=== PATIENT | female | born 1985 ===

== ENCOUNTER 2025-01-19 13:14 | Outpatient (AMB) | payer OTHER, SELFPAY ==
--- NOTE | 2025-01-19 13:28 | A.OFFPC_ITS ---
Vital Signs 3 01/19/25 13:32 Height 5 ft 3.78 in Weight 128 lb 4 oz BMI 22.2 BP 112/70 Blood Pressure Location Lt brachial Position Sitting Pulse 82 Pulse Oximetry (%) 98 Intake Visit Reasons: SALES SUPPORT COORDINATOR establish care Accounts Administrator Required: No Accompanied by: Self / Same As Patient Is last menstrual period known: Yes Last menstrual period: 01/06/25 Post menopausal: No Patient : No Allergies asprin Allergy (Severe, Uncoded 01/19/25 13:41) Swelling Medication List - Last Reconciled 01/19/25 by Ashley Mcfarland PA-C ferrous sulfate 325 mg PO DAILY Tobacco use date assessed: 01/19/25 Dental Screening Dental Screen Date: 01/19/25 Did you have a dental visit in the last 12 months?: Yes Did you have a dental problem in the last 6 months where you did not have access to dental care?: No Was dental information given to patient?: Patient has dentist HPI SALES SUPPORT COORDINATOR establish care 2 HPI0 Details 39-year-old female coming to the office with the 1st time. Presenting with abdominal pain and a cyst in the left axilla. Abdominal pain occurs daily in the afternoon after eating, with no pain in the morning. The pain is described as a feeling of fullness and occurs despite eating small amounts. Constipation is reported, with bowel movements occurring infrequently. The patient uses MiraLax on weekends to manage constipation. The patient has a family history of stomach cancer; her father was diagnosed at age 50. A cyst in the left axilla was first noticed last year and causes intermittent pain, described as a pinch. The cyst is tender upon palpation and causes discomfort during certain activities. The patient has a history of a benign breast mass, which was biopsied and found to be non-cancerous. [facility] Medical History Kidney stones Surgical History H/O tubal ligation Family History Father Stomach cancer Maternal Grandfather Colon cancer Maternal Grandmother Alzheimer dementia Paternal Grandfather History of heart cancer Social History Household Members: Children Household Members Other:: 2 Both parents involved: No Caregiver staying overnight: No Housing: House Are you a primary pharmacist critical care to a significant other at home: No Do you presently have visiting nurse or other home services: No Alcohol intake: never Patient Tobacco Use Status: Never used Tobacco e-Cigarette/Vaping Use: Never Used service: No Current occupational status: employed Cognitive needs: No Hearing needs: No Vision needs: No Female Reproductive History Menstrual Duration of menses: 6-7 days Date of last menstrual period: 01/06/25 control method: permanent sterilization Permanent Sterilization: BTL Total pregnancies: 1 Full term: 1 Number of Living Children: 1 Questionnaire PHQ-9 Over the last 2 weeks, how often have you been bothered by any of the following problems? 1. Little interest or pleasure in doing things: not at all 2. Feeling down, depressed, or hopeless: not at all 3. Trouble falling or staying asleep, or sleeping too much: not at all 4. Feeling tired or having little energy: not at all 5. Poor appetite or overeating: not at all 6. Feeling bad about yourself - or that you are a failure or have let yourself or your family down: not at all 7. Trouble concentrating on things, such as reading the newspaper or watching television: not at all 8. Moving or speaking so slowly that other people could have noticed. Or the opposite - being so fidgety or restless that you have been moving around a lot more than usual: not at all 9. Thoughts that you would be better off or of hurting yourself in some way: not at all Total score: 0 Depression Screening Interpretation: Negative Depression Screening Done: Yes 52554 - PHQ-9 Billing: Yes Source: Developed by Drs. Baron Melara, Cassie Huggins, Janes Arguelles and colleagues, with an educational samanta from [employer]. Thrive Questionnaire Date Thrive assessed: 01/19/25 I am a: Patient What is your living situation today?: I have a steady place to live Within the past 12 months, did the food you bought not last and you didn't have the money to get more?: I choose not to answer this question Within the past 12 months, did you worry whether your food would run out before you got money to buy more?: I choose not to answer this question Do you have trouble paying for medicines?: No Do you have trouble getting transportation to medical appointments?: No Do you have trouble paying your heating and electricity bill?: No Do you have trouble taking care of your child, family member or friend?: No Do you have trouble with day-to-day activities such as bathing, preparing meals, shopping, managing finances, etc.?: No Are you currently unemployed and looking for a job?: No Are you interested in more education?: I choose not to answer this question Please select the resources that you would like help with: None Currently or been in a relationship where the following occur: No concerns reported THRIVE Score: 0 AUDIT C Alcohol Use Questionnaire (AUDIT-C) 1. How often do you have a drink containing alcohol?: Never Total Score: 0 JUANCARLOS-7 AMB Questionnaire JUANCARLOS-7 Date JUANCARLOS - 7 assessed: 01/19/25 Feeling nervous, anxious, or on edge: 0 = Not at all Not being able to stop or control worryin = Not at all Worrying too much about different things: 0 = Not at all Trouble relaxin = Not at all Being so restless that it is hard to sit still: 0 = Not at all Becoming easily annoyed or irritable: 0 = Not at all Feeling afraid as if something awful might happen: 0 = Not at all Total JUANCARLOS-7 score (0-4 normal; 5-9 mild; 10-14 moderate; 15-21 severe): 0 Source: Developed by Drs. Baron Melara, Cassie Huggins, Janes Arguelles and colleagues, with an educational samanta from [employer]. JUANCARLOS-7 Assessment Billing JUANCARLOS-7 Assessment Tool: JUANCARLOS-7 Assessment 98554 Review of Systems Const Denies body aches, Denies chills, Denies fever(s), Denies headache(s) and Denies poor appetite Eyes Reports no additional complaints ENT Denies dysphagia, Denies dizziness, Denies headache(s) and Denies odynophagia Card Denies chest pain, Denies syncope, Denies edema, Denies irregular heart rhythm, Denies lightheadedness and Denies dyspnea Resp Denies cough and Denies dyspnea GI Reports abdominal pain, Reports constipation, Denies dysphagia, Reports early satiety, Denies diarrhea, Denies nausea, Denies odynophagia and Denies vomiting Reports no additional complaints Musc Reports no additional complaints and Denies abnormal gait Skin/Breast Reports system reviewed and no additional complaints, except as documented Neuro Denies abnormal gait, Denies dizziness, Denies syncope and Denies headache(s) Psych Reports no additional complaints Physical exam (Primary Care) Vital Signs: Last Vital Signs Pulse 82 01/19/25 13:32 BP 112/70 01/19/25 13:32 Pulse Ox 98 01/19/25 13:32 BMI result Body Mass Index 22.2 Tobacco/Smoking Status: Tobacco use Status Tobacco use date assessed 01/19/25 01/19/25 13:41 Patient Tobacco Use Status Never used Tobacco 01/19/25 13:41 e-Cigarette/Vaping Use Never Used 01/19/25 13:41 PHQ-9: PHQ-9 Score PHQ-9: Total score 0 01/19/25 13:55 Depression Screening Interpretation: Negative Thrive Assessment: Date of Thrive Assessment Date Thrive assessed 01/19/25 01/19/25 13:41 Currently or been in a relationship where the following occur: No concerns reported Const General: cooperative, healthy appearing, comfortable and no acute distress Orientation/consciousness: patient oriented x3 HENMT Head: Yes normocephalic Ears: hearing grossly normal bilaterally General nose exam: Normal external nose present Eyes General: appearance normal, both eyes and all related structures Conjunctivae: conjunctivae normal Neck Neck: Yes full ROM and Yes no lymphadenopathy Chest Chest/axillae images: 2 1. small , soft, tender mass Resp Effort & Inspection: normal respiratory effort Auscultation: clear to auscultation bilaterally, no crackles, no rales, no rhonchi and no wheezes Cardio Rate: regular rate Rhythm: regular rhythm GI Palpation (GI): Soft to palpation, not firm, nontender, no guarding, not rigid, no masses and No Rebound tenderness present Skin General skin exam: no rashes or lesions noted Neuro General: patient oriented x3 Gait exam (Neuro): Normal gait present Extrem General: Yes normal to inspection, Yes full ROM and No edema Psych Affect: normal affect Attitude: cooperative Insight: Good insight present (Psych) Judgement: Good judgement present (Psych) Coding Level of Care Code New Pt Level 4 (99425) Diagnoses Iron deficiency E61.1 Early satiety R68.81 Family history of stomach cancer Z80.0 Postprandial abdominal pain in left upper quadrant R10.12 Soft tissue mass M79.89 Additional Codes JUANCARLOS-7 Assessment Billing - JUANCARLOS-7 Assessment Tool: JUANCARLOS-7 Assessment 67269 ([id number]) PHQ-9 - 81452 - PHQ-9 Billing: Yes ([id number]) Assessment & Plan Assessment & Plan (1) Iron deficiency: Code(s): E61.1 - Iron deficiency Category: Medical Plan: Patient has a history of iron-deficiency and takes ferrous sulfate. I did discuss with the patient this may be contributing to her constipation and she should increase water intake. Ordered for updated blood work (2) Early satiety: Code(s): R68.81 - Early satiety Category: Medical Plan: Patient reporting early satiety along with abdominal pain and constipation. Given patient's significant family history of a first-degree relative with gastric cancer diagnosed at a young age plan to refer to GI at this time. I did order for updated blood work for further evaluation and discussed a low FODMAP diet. Advised patient to increase fiber supplement and water intake. Reminded patient about the 3 rules of constipation; increase water intake, increase fiber intake and exercise as tolerated. (3) Family history of stomach cancer: Code(s): Z80.0 - Family history of malignant neoplasm of digestive organs Category: Medical Plan: See above (4) Postprandial abdominal pain in left upper quadrant: Code(s): R10.12 - Left upper quadrant pain Category: Medical Plan: See above (5) Soft tissue mass: Code(s): M79.89 - Other specified soft tissue disorders Category: Medical Plan: Patient having soft tissue mass in the left axilla that is tender to palpation. Referral was placed to General surgery for possible excision Plan I discussed with the patient the importance of addressing her abdominal pain, especially given her family history of stomach cancer. We talked about the benefits of a low FODMAP diet to manage her symptoms and the need for a GI specialist consultation. Regarding the cyst in her left axilla, I explained the option of surgical removal if it remains bothersome, and we agreed on a referral to a surgeon. I also emphasized the importance of managing her constipation with MiraLax and dietary changes. This note was constructed using voice recognition software. While every effort has been made to ensure accuracy and cupola repairer, still areas may have been included sometimes these areas may affect the content or meeting of the given symptoms. Total time spent caring for the patient today was 30 minutes. This includes time spent before the visit reviewing the chart, time spent during the visit, and time spent after the visit and documentation. Patient was informed and verbally consented to the use of an ambient scribe for clinic note documentation during this visit. Orders: Orders 2 TSH reflex Free T4 Today Z13.29 - Encounter for screening for other suspected endocrine disorder Vitamin B12 and Folate Today Z13.21 - Encounter for screening for nutritional disorder MM tomosynthesis screening BI Today Z12.31 - Encounter for screening mammogram for malignant neoplasm of breast IRON PROFILE Today E61.1 - Iron deficiency Complete Blood Count Auto Diff Today E61.1 - Iron deficiency, Z00.00 - Encounter for general adult medical examination without abnormal findings Vitamin D 25-OH Total Today Z13.21 - Encounter for screening for nutritional disorder Comprehensive Met. Panel Today Z13.1 - Encounter for screening for diabetes mellitus Lipid Panel Today Z13.220 - Encounter for screening for lipoid disorders Referrals 2 General Surgery Referral M79.89 - Other specified soft tissue disorders Gastroenterology Referral R10.12 - Left upper quadrant pain, R68.81 - Early satiety, Z80.0 - Family history of malignant neoplasm of digestive organs
[2025-01-19 13:32] VITALS: BP 112/70; PULSE 82; O2SAT 98; BMI 22.2
== END 2025-01-19 14:14 | disposition home or self-care (01) ==
LOC: HO.HMCH 13:15
DX: E61.1 Iron deficiency (principal); R68.81 Early satiety; Z80.0 Family history of malignant neoplasm of digestive organs; R10.12 Left upper quadrant pain; M79.89 Other specified soft tissue disorders

== ENCOUNTER → 2025-01-19 13:14 | Outpatient (BNVA) | payer OTHER, SELFPAY | DX: R10.12 Left upper quadrant pain (principal); L72.8 Other follicular cysts of the skin and subcutaneous tissue; E61.1 Iron deficiency; R68.81 Early satiety; Z80.0 Family history of malignant neoplasm of digestive organs | CPT/HCPCS: 96127 ==

== ENCOUNTER 2025-01-22 09:35 | Outpatient (REF) | payer OTHER, SELFPAY ==
[2025-01-22 13:34] LABS: MANUAL DIFF FLAG NO
[2025-01-22 13:39] LABS: Hematocrit 37.3 % (37.0-47.0); Hemoglobin 12.2 g/dl (12.0-16.0); Imm Gran Abs Auto 0.04 X10*3/uL (0.00-0.03); Imm Gran Pct Auto 0.4 % (0.0-0.4); Lymphocytes Absolute Auto 2.1 X10*3/uL (1.2-4.9); Mean Corpuscular HGB Conc 32.7 g/dl (31.0-35.0); Mean Corpuscular Hemoglobin 28.7 pg (27.0-33.0); Mean Corpuscular Volume 87.8 fL (80.0-98.0); NRBC Abs Auto 0.000 X10*3/uL (0.0-0.012); NRBC Pct Auto 0.0 /100WBC (0.0-0.2); Platelet Count 303 X10*3/uL (160-400); Red Blood Count 4.25 X10*6/uL (4.20-5.50); White Blood Count 9.2 X10*3/uL (4.8-10.8)
[2025-01-22 13:59] LABS: Alanine Aminotransferase 18 U/L (0-31); Albumin Level 4.7 g/dL (3.5-5.0); Alkaline Phosphatase 49 U/L (39-117); Anion Gap 11 (12-20); Aspartate Amino Transferase 23 U/L (5-31); Blood Urea Nitrogen 16 mg/dL (9-16); Calcium 9.1 mg/dL (8.4-10.2); Carbon Dioxide 27 mmol/L (22-29); Chloride 107 mmol/L (96-108); Cholesterol 237 mg/dL (<200); Estimated Glomerular Filt Rate > 60; HDL Cholesterol 63 mg/dL (>40); Iron 96 mcg/dL (30-160); Percent Iron Saturation 38 % (15-50); Potassium 4.2 mmol/L (3.3-5.1); Sodium 141 mmol/L (135-145); Total Iron Binding Capacity 250 mcg/dL (228-428); Total Protein 7.4 g/dL (6.5-8.0); Triglycerides 92 mg/dL (<150); Unsaturated Iron Binding 154 ug/dL
[2025-01-22 14:24] LABS: Folate 13.9 ng/mL (> or = 4.0); Vitamin B12 1435 pg/mL (200-900)
== END 2025-01-22 09:36 | disposition home or self-care (01) ==
LOC: HO.HMGCLDS 09:35
DX: Z00.00 Encounter for general adult medical examination without abnormal findings (principal); Z13.29 Encounter for screening for other suspected endocrine disorder; Z13.21 Encounter for screening for nutritional disorder; Z13.1 Encounter for screening for diabetes mellitus; Z13.220 Encounter for screening for lipoid disorders; E61.1 Iron deficiency; Z13.6 Encounter for screening for cardiovascular disorders
CPT/HCPCS: 36415; 80053; 80061; 82306; 82607; 82746; 83540; 84443; 85025

== ENCOUNTER 2025-02-26 10:10 | Outpatient (AMB) | payer OTHER, SELFPAY ==
--- NOTE | 2025-02-26 10:20 | MHC.OFFVIS ---
Vital Signs 02/26/25 10:39 Height 5 ft 5 in Weight 131 lb BMI 21.8 BP 112/57 L Blood Pressure Location Lt brachial Position Sitting Pulse 81 Intake Visit Reasons: Other specified soft tissue disorders, L axila Intake Note: Patient is seen in office for evaluation of cyst in the left axilla. Pt c/o: admits to lump in the left axilla for aprox one year, discomfort due to the area, painful at times, denies increase, discharge or other concerns Garment Finisher Required: Yes Garment Finisher Language: Trackwalker Services: Garment Finisher Present Garment Finisher Name: Ambika DARBY Information Interpreted: non-clinical & clinical Telegraph Office Telephone Clerk: Telegraph Office Telephone Clerk Present Accompanied by: Self / Same As Patient Allergies aspirin Allergy (Mild, Verified 02/26/25 10:31) swollen Medication List - Last Reconciled 02/26/25 by Octaviano Sims MD ferrous sulfate 325 mg PO DAILY HPI Comments Details: 39-year-old female patient presenting for evaluation of a palpable lump located in the left axilla. She 1st noted this approximately 1 year ago and denies any significant change in the size of the lesion. She does report pain when the lesion is palpated. 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 The pain sometimes shoots down into the arm or into the chest. She denies any numbness or tingling in the hands. She denies any previous history of the breast. She is scheduled for a mammogram and ultrasound on 03/27/2025. Her family history is negative for breast cancer. She is . [facility] Medical History Kidney stones Surgical History H/O tubal ligation Family History Father Stomach cancer Maternal Grandfather Colon cancer Maternal Grandmother Alzheimer dementia Paternal Grandfather History of heart cancer Social History Household Members: Children Household Members Other:: 2 Both parents involved: No Caregiver staying overnight: No Housing: House Are you a primary career coach to a significant other at home: No Do you presently have visiting nurse or other home services: No Alcohol intake: never Patient Tobacco Use Status: Never used Tobacco e-Cigarette/Vaping Use: Never Used service: No Current occupational status: employed Cognitive needs: No Hearing needs: No Vision needs: No Review of Systems Const All systems reviewed & are unremarkable except as noted in HPI and below Physical Exam Vital Signs: Last Vital Signs Pulse 81 02/26/25 10:39 BP 112/57 L 02/26/25 10:39 BMI result Body Mass Index 21.8 Const General: cooperative and no acute distress Nutritional Appearance: well nourished Orientation/consciousness: patient oriented x3 Limitations: no limitations HEENT Head: Yes normocephalic and Yes atraumatic Ears: hearing grossly normal bilaterally Chest Other: Exam limited to left axilla with a tiny palpable, tender nodule measuring less than pea size. Findings suggestive of a possible lymph node versus lipoma. No overlying skin changes appreciated. Chest/axillae images:  1. Site of palpable nodule Resp Effort & Inspection: normal respiratory effort, no audible wheezes, no cough and no respiratory distress Cardio Jugular venous distension: no JVD GI Inspection: Yes normal to inspection Skin Other: Warm, dry, no rash Neuro General: patient oriented x3 Extrem General: Yes no clubbing, cyanosis or edema Assessment & Plan Assessment & Plan (1) Soft tissue mass: Code(s): M79.89 - Other specified soft tissue disorders Category: Medical Plan 39-year-old female patient presenting with a 1 year history of a palpable nodule located in the left axilla. On examination this is quite small but certainly tender to palpation. Most likely cause is an enlarged lymph node. There are no overlying skin changes to indicate hidradenitis. She is scheduled for a mammogram and ultrasound on 03/27/2025. I recommended follow-up after these tests are performed to review the results and discuss treatment options. She expressed understanding and agrees with the plan. Coding Level of Care Code New Pt Level 4 (28459) Diagnoses Soft tissue mass M79.89
[2025-02-26 10:39] VITALS: BP 112/57; PULSE 81; BMI 21.8
== END 2025-02-26 10:42 | disposition home or self-care (01) ==
LOC: HO.HGS 10:11
PROVIDERS: Visit Provider Surgery
DX: M79.89 Other specified soft tissue disorders (principal)
CPT/HCPCS: 99204

== ENCOUNTER 2025-03-27 08:54 | Outpatient (REF) | payer OTHER, SELFPAY ==
--- NOTE | ~2025-03-27 | MM_ITS ---
EXAMINATION: MM SCREENING DIGITAL BREAST TOMOSYNTHESIS, BILATERAL CLINICAL INFORMATION: Screening. Asymptomatic. COMPARISON: Mammography: Baseline. Patient has a left upper axillary palpable lump. Diagnostic ultrasound and mammography of this lump is recommended at this time. TECHNIQUE: Digital breast mammography with tomosynthesis is performed in both the craniocaudal and mediolateral oblique views along with computer-aided detection (CAD). FINDINGS: The breasts are heterogeneously dense, which may obscure small masses. Left: Marker clip. Asymmetry retroareolar region posterior depth on CC view. No other suspicious abnormal findings or calcifications. Right: Focal asymmetry upper inner breast far posterior depth. Asymmetry superior breast middle depth on MLO view. No suspicious calcifications or other abnormal findings. MM/MM tomosynthesis screening BI IMPRESSION: Additional imaging is recommended Patient also has left axillary palpable lump. Ultrasound and possible additional mammographic imaging recommended at this time. ASSESSMENT: BI-RADS Category 0: Incomplete - Need additional Imaging Evaluation RECOMMENDATION: 1. Additional views of the bilateral breasts and left axilla 2. Targeted ultrasound if warranted after review of the additional views. 3. Radiology department staff will contact the patient for additional imaging. Additional Imaging required Electronically signed by: Loida Alves DO 03/30/2025 12:10 PM EST
== END 2025-03-27 08:55 | disposition home or self-care (01) ==
LOC: HO.MAMMO 08:54
DX: Z12.31 Encounter for screening mammogram for malignant neoplasm of breast (principal)
CPT/HCPCS: 77063; 77067

== ENCOUNTER → 2025-03-27 09:00 | Outpatient (BNV) | payer OTHER, SELFPAY | PROVIDERS: Visit Provider Internal Medicine | DX: Z12.31 Encounter for screening mammogram for malignant neoplasm of breast (principal) | CPT/HCPCS: 77063; 77067 ==

== ENCOUNTER 2025-04-27 09:42 | Outpatient (AMB) | payer OTHER, SELFPAY ==
[2025-04-27 09:44] VITALS: BP 108/62; PULSE 81; RESP 18; O2SAT 99; BMI 22.8
--- NOTE | 2025-04-27 09:44 | MHC.PC.OV ---
Vital Signs 04/27/25 09:44 Height 5 ft 5 in Weight 137 lb 2 oz BMI 22.8 BP 108/62 Blood Pressure Location Lt brachial Position Sitting Respiration 18 Pulse 81 Pulse Source Pulse Oximeter Temp Source Temporal Artery Scan Pulse Oximetry (%) 99 Oxygen Delivery Method Room Air Intake Visit Reasons: 3 months Correspondence Section Supervisor Required: No Accompanied by: Self / Same As Patient Allergies aspirin Allergy (Mild, Verified 04/27/25 09:58) swollen Medication List - Last Reconciled 04/27/25 by Ashley Mcfarland PA-C ferrous sulfate 325 mg PO DAILY Tobacco use date assessed: 04/27/25 Dental Screening Dental Screen Date: 04/27/25 Did you have a dental visit in the last 12 months?: Yes Did you have a dental problem in the last 6 months where you did not have access to dental care?: No Was dental information given to patient?: Patient has dentist HPI 3 months HPI Details 39 year old female with past medical history of iron-deficiency last seen 12/2024 coming in for follow up. Presenting for follow-up on several clinical issues. The patient reports a history of recurrent vaginal itching that occurs every three months, coinciding with the menstrual period. A previous provider prescribed an oral medication, fluconazole, taken weekly for four weeks, which resolved the symptoms, whereas a topical cream was ineffective. The symptoms of itching have returned. Regarding gastrointestinal issues, the patient is scheduled to see a GI specialist tomorrow. The patient has tried dietary modifications, including avoiding sugar and eating out less, which has helped the symptoms. Cholesterol was elevated on last blood work. [facility] Medical History Screening for hypercholesterolemia Kidney stones Surgical History H/O tubal ligation Family History Father Stomach cancer Maternal Grandfather Colon cancer Maternal Grandmother Alzheimer dementia Paternal Grandfather History of heart cancer Social History Household Members: Children Household Members Other:: 2 Both parents involved: No Caregiver staying overnight: No Housing: House Are you a primary care management coordinator to a significant other at home: No Do you presently have visiting nurse or other home services: No Alcohol intake: never Patient Tobacco Use Status: Never used Tobacco e-Cigarette/Vaping Use: Never Used service: No Current occupational status: employed Cognitive needs: No Hearing needs: No Vision needs: No Questionnaire Thrive Questionnaire Date Thrive assessed: 04/27/25 I am a: Patient What is your living situation today?: I have a steady place to live Within the past 12 months, did the food you bought not last and you didn't have the money to get more?: I choose not to answer this question Within the past 12 months, did you worry whether your food would run out before you got money to buy more?: I choose not to answer this question Do you have trouble paying for medicines?: No Do you have trouble getting transportation to medical appointments?: No Do you have trouble paying your heating and electricity bill?: No Do you have trouble taking care of your child, family member or friend?: No Do you have trouble with day-to-day activities such as bathing, preparing meals, shopping, managing finances, etc.?: No Are you currently unemployed and looking for a job?: No Are you interested in more education?: I choose not to answer this question Please select the resources that you would like help with: None Currently or been in a relationship where the following occur: No concerns reported THRIVE Score: 0 JUANCARLOS-7 AMB Questionnaire JUANACRLOS-7 Date JUANCARLOS - 7 assessed: 01/19/25 Source: Developed by Drs. Baron Melara, Cassie Huggins, Janes Arguelles and colleagues, with an educational samanta from [employer]. Review of Systems Const Denies body aches, Denies chills, Denies fever(s), Denies headache(s) and Denies poor appetite Eyes Reports no additional complaints ENT Denies dizziness and Denies headache(s) Card Denies chest pain, Denies edema, Denies lightheadedness and Denies dyspnea Resp Denies dyspnea GI Reports abdominal pain, Reports bloating, Reports constipation, Denies nausea and Denies vomiting Reports no additional complaints Musc Denies abnormal gait Skin/Breast Reports system reviewed and no additional complaints, except as documented Neuro Denies abnormal gait, Denies dizziness and Denies headache(s) Psych Reports no additional complaints Physical exam (Primary Care) Vital Signs: Last Vital Signs Pulse 81 04/27/25 09:44 Resp 18 04/27/25 09:44 BP 108/62 04/27/25 09:44 Pulse Ox 99 04/27/25 09:44 Oxygen Delivery Method Room Air 04/27/25 09:44 BMI result Body Mass Index 22.8 Tobacco/Smoking Status: Tobacco use Status Tobacco use date assessed 04/27/25 04/27/25 09:45 Patient Tobacco Use Status Never used Tobacco 04/27/25 09:45 e-Cigarette/Vaping Use Never Used 04/27/25 09:45 Thrive Assessment: Date of Thrive Assessment Date Thrive assessed 04/27/25 04/27/25 09:45 Currently or been in a relationship where the following occur: No concerns reported Const General: cooperative, healthy appearing, comfortable and no acute distress Orientation/consciousness: patient oriented x3 HENMT Head: Yes normocephalic Ears: hearing grossly normal bilaterally General nose exam: Normal external nose present Eyes General: appearance normal, both eyes and all related structures Conjunctivae: conjunctivae normal Neck Neck: Yes full ROM and Yes no lymphadenopathy Resp Effort & Inspection: normal respiratory effort Auscultation: clear to auscultation bilaterally, no crackles, no rales, no rhonchi and no wheezes Cardio Rate: regular rate Rhythm: regular rhythm Skin General skin exam: no rashes or lesions noted Neuro General: patient oriented x3 Gait exam (Neuro): Normal gait present Extrem General: Yes normal to inspection, Yes full ROM and No edema Psych Affect: normal affect Attitude: cooperative Insight: Good insight present (Psych) Judgement: Good judgement present (Psych) Coding Level of Care Code Est Pt Level 3 (61891) Diagnoses Iron deficiency E61.1 Early satiety R68.81 Postprandial abdominal pain in left upper quadrant R10.12 Soft tissue mass M79.89 Hypercholesterolemia E78.00 Vaginal itching N89.8 Assessment & Plan Assessment & Plan (1) Iron deficiency: Code(s): E61.1 - Iron deficiency Category: Medical Plan: last lab work WNL. (2) Early satiety: Code(s): R68.81 - Early satiety Category: Medical Plan: The patient reports ongoing gastrointestinal symptoms and has an appointment with a GI specialist tomorrow. The patient reports improvement with dietary changes, including avoiding sugar and eating out less, and should continue these modifications. (3) Postprandial abdominal pain in left upper quadrant: Code(s): R10.12 - Left upper quadrant pain Category: Medical Plan: See above (4) Soft tissue mass: Code(s): M79.89 - Other specified soft tissue disorders Category: Medical Plan: Recent mammogram requiring additional imaging. She is scheduled for repeat mammogram 05/10 and appointment with breast surgery to follow. (5) Hypercholesterolemia: Code(s): E78.00 - Pure hypercholesterolemia, unspecified Category: Medical Plan: Avoid foods that are high in cholesterol such as red meat, fried foods, eggs and baked goods. Triglyceride goal of less than 150 and LDL goal of less than 130. Recent labs showed an elevated LDL cholesterol of 156 mg/dL. Medication is not being initiated at this time. The plan is to provide patient education on dietary modifications to lower cholesterol, and educational materials will be provided in Slovenian. A repeat fasting lipid panel is ordered to be completed in a few months. (6) Vaginal itching: Code(s): N89.8 - Other specified noninflammatory disorders of vagina Category: Medical Plan: The patient reports a recurrence of vaginal itching. A prescription for fluconazole will be sent. If symptoms do not resolve, the patient should call for a follow-up to perform a swab and rule out a concomitant infection. A referral will be placed for a state assessed properties director for further evaluation, and the specialist's office will contact the patient to schedule an appointment. She has history of recurrent vulvovaginitis and was previously on fluconazole weekly by previous PCP. Plan This note was constructed using voice recognition software. While every effort has been made to ensure accuracy and teaching supervisor, still areas may have been included sometimes these areas may affect the content or meeting of the given symptoms. Total time spent caring for the patient today was 30 minutes. This includes time spent before the visit reviewing the chart, time spent during the visit, and time spent after the visit and documentation. Patient was informed and verbally consented to the use of an ambient scribe for clinic note documentation during this visit. Orders: Orders Lipid Panel Today E78.00 - Pure hypercholesterolemia, unspecified Referrals [facility] Referral Z12.4 - Encounter for screening for malignant neoplasm of cervix Medications: New fluconazole 150 mg PO Q3D 2 tabs 0RF 2 doses
== END 2025-04-27 10:22 | disposition home or self-care (01) ==
LOC: HO.HMCH 09:42
DX: E61.1 Iron deficiency (principal); R68.81 Early satiety; R10.12 Left upper quadrant pain; M79.89 Other specified soft tissue disorders; E78.00 Pure hypercholesterolemia, unspecified; N89.8 Other specified noninflammatory disorders of vagina

== ENCOUNTER 2025-04-28 10:12 | Outpatient (AMB) | payer OTHER, SELFPAY ==
--- NOTE | 2025-04-28 10:19 | MHC.OFFVIS ---
Vital Signs 04/28/25 10:23 Height 5 ft 5 in Weight 137 lb BMI 22.8 BP 102/66 Blood Pressure Location Rt brachial Position Sitting Pulse 82 Pulse Source Pulse Oximeter Pulse Oximetry (%) 98 Oxygen Delivery Method Room Air Intake Visit Reasons: early satiety LUQ pain Intake Note: Patient new consult for early satiety LUQ pain Patient cc: C/O LUQ pain intermittently x1-2 years. Pt denies any additional sx or concerns and states that her condition seems idiopathic in nature. Food Service Order Clerk Required: Yes Food Service Order Clerk Language: Manager Of Business Services: Food Service Order Clerk Present Food Service Order Clerk Name: [id number] Information Interpreted: non-clinical & clinical Accompanied by: Self / Same As Patient Allergies aspirin Allergy (Mild, Verified 04/28/25 10:21) swollen Medication List - Last Reconciled 04/28/25 by Karen Parker CNP ferrous sulfate 325 mg PO DAILY fluconazole 150 mg PO Q3D 2 doses HPI HPI early satiety LUQ pain: Details: Patient is a 39-year-old female with PMH of iron-deficiency on ferrous sulfate. Further evaluation of abdominal pain. Patient presents with a two-year history of pain localized to the left upper quadrant, primarily occurring after meals, particularly when feeling full. The pain resolves with walking but patient reports limited opportunity due to work schedule. Accompanying symptoms include early satiety and intermittent regurgitation. No heartburn or dysphagia. Patient typically eats small breakfasts and a regular dinner, actively limiting portions to avoid pain. Denies nausea and vomiting. Frequency of bowel movements is significantly reduced, sometimes going up to three weeks without a bowel movement, requiring use of stimulant laxatives. Has ongoing concerns about laxative dependency. Reports miralax was ineffective. No recent changes in weight, and iron supplementation is ongoing due to a history of anemia, with unclear etiology. Additional medical background includes recurrent vaginal fungal infections post-sterilization procedure. Family history notable for stomach cancer in father and maternal grandfather. No tobacco, alcohol, or illicit drug use. 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 No reported history of cancer in self, nor cardiovascular or respiratory comorbidities affecting GI management. Patient denies: fever/chills, appetite changes, pyrosis, dysphasia, unintentional wt loss or melena/hematochezia. Social hx: -denies ETOH use -denies recreational drug use -non-smoker - family hx as below -denies personal hx of CA -tolerated anesthesia in the past without difficulty. [facility] Medical History (Updated 04/28/25 @ 11:06 by Karen Parker CNP) Constipation Screening for hypercholesterolemia Kidney stones Surgical History H/O tubal ligation Family History Father Stomach cancer Maternal Grandfather Colon cancer Maternal Grandmother Alzheimer dementia Paternal Grandfather History of heart cancer Social History Household Members: Children Household Members Other:: 2 Both parents involved: No Caregiver staying overnight: No Housing: House Are you a primary rn complex care to a significant other at home: No Do you presently have visiting nurse or other home services: No Alcohol intake: never Patient Tobacco Use Status: Never used Tobacco e-Cigarette/Vaping Use: Never Used service: No Current occupational status: employed Cognitive needs: No Hearing needs: No Vision needs: No Review of Systems Const Reports as per HPI ENT Reports as per HPI Card Reports as per HPI Resp Reports as per HPI GI Reports as per HPI Reports as per HPI Physical Exam Vital Signs: Last Vital Signs Pulse 82 04/28/25 10:23 BP 102/66 04/28/25 10:23 Pulse Ox 98 04/28/25 10:23 Oxygen Delivery Method Room Air 04/28/25 10:23 BMI result Body Mass Index 22.8 Const General: healthy appearing, no acute distress and well developed Nutritional Appearance: average body habitus Orientation/consciousness: patient oriented x3 HEENT Head: Yes normal to inspection, Yes normocephalic and Yes atraumatic Face and sinus: Yes normal facial exam Eyes General: appearance normal, both eyes and all related structures Neck Neck: Yes normal visual inspection Resp Effort & Inspection: normal respiratory effort, able to speak in complete sentences, no tracheal deviation and symmetric chest movement Cardio Jugular venous distension: no JVD GI Inspection: Yes normal to inspection and No distended Palpation (GI): Soft to palpation, not firm, nontender and No hepatosplenomegaly present Auscultation: normal bowel sounds Neuro General: patient oriented x3 Gait exam (Neuro): Normal gait present Psych Appearance: grossly normal Mental Status: mental status grossly normal Speech and movement: Normal speech and movement present Affect: normal affect Attitude: cooperative Thought process: Normal thought process present Thought content: Normal thought content present Insight: Good insight present (Psych) Judgement: Good judgement present (Psych) Assessment & Plan Assessment & Plan (1) Early satiety: Code(s): R68.81 - Early satiety Category: Medical Plan: Chronic LUQ pain post-prandial with early satiety and regurgitation; high-risk family history; absent NSAID overuse and alcohol. Additional Testing: - H. pylori breath test performed during visit. - Plan for upper endoscopy; order placed, patient to be scheduled. Medication Management: - Start famotidine (Pepcid), one tablet at bedtime (can be taken AM or PM per patient preference). - Contingency to step-up to omeprazole pending diagnostic results. Lifestyle Recommendations: - Continue small, regular meals, avoid trigger foods, maintain hydration. Follow-Up: - Await H. pylori results; reassess symptom response to empirical acid-suppression; schedule follow-up after endoscopy and/or lab results, or sooner if symptoms worsen. (2) Constipation: Code(s): K59.00 - Constipation, unspecified Category: Medical Qualifiers: Constipation type: unspecified constipation type Qualified Code(s): K59.00 - Constipation, unspecified Plan: Severe infrequent BMs, requiring senna; ineffective dietary fiber; prior trial of osmotic agents (Miralax, lactulose). Additional Testing: - Can add further workup if constipation persists or worsens. Medication Management: - Continue senna, start taking daily (monitor for dependence); recommend addition of stool softener (docusate, 2 caps HS). - Consider lactulose if no improvement with current regimen. Lifestyle Recommendations: - Encourage fiber-rich foods and regular fluid intake; continue to monitor effects of dietary efforts. Follow-Up: - Reassess constipation and efficacy of adjusted agents at next GI clinic visit or via portal communication. Plan Follow-up after endoscopy or sooner as needed Time: I spent a total of 35 minutes on the date of encounter which includes: Preparing to see the patient (reviewed previous documentation, test results and medical history) Performing a medically appropriate exam and/or evaluation Ordering medications, tests, and procedures Documenting clinical information in the health record Orders: Orders H Pylori Breath Test 12/03/25 R68.81 - Early satiety Referrals GI Procedure Notification R68.81 - Early satiety, Z80.0 - Family history of malignant neoplasm of digestive organs Medications: New famotidine Take one tablet at bedtime. 40 mg PO BEDTIME 180 tabs 0RF docusate sodium Take two tablet at bedtime 200 mg (2 x 100 mg) PO BEDTIME 90 caps 1RF constipation Coding Level of Care Code New Pt New Pt Level 3 (06499) Patient Type New Diagnoses Early satiety R68.81 Constipation, unspecified constipation type K59.00 Constipation type: unspecified constipation type
[2025-04-28 10:23] VITALS: BP 102/66; PULSE 82; O2SAT 98; BMI 22.8
== END 2025-04-28 11:47 | disposition home or self-care (01) ==
LOC: HO.HGI 10:13
PROVIDERS: Visit Provider Nurse Practitioner Family
DX: R68.81 Early satiety (principal); K59.00 Constipation, unspecified
CPT/HCPCS: 99203

== ENCOUNTER 2025-04-28 10:12 | Outpatient (REF) | payer OTHER, SELFPAY | END 2025-04-28 10:13 | disposition home or self-care (01) | LOC: HO.LNP 10:12 | PROVIDERS: Visit Provider Nurse Practitioner Family | DX: R68.81 Early satiety (principal); G89.29 Other chronic pain; K59.00 Constipation, unspecified; Z79.899 Other long term (current) drug therapy; Z80.0 Family history of malignant neoplasm of digestive organs | CPT/HCPCS: 83013 ==

== ENCOUNTER 2025-05-10 13:56 | Outpatient (REF) | payer OTHER, SELFPAY ==
--- NOTE | ~2025-05-10 | MM_ITS ---
EXAMINATION(S): 1. MM DIAGNOSTIC DIGITAL BREAST TOMOSYNTHESIS, BILATERAL 2. TARGETED ULTRASOUND OF THE BILATERAL BREASTS CLINICAL INFORMATION: Callback from screening for bilateral breasts findings: Right: 1) Asymmetry in superior breast middle depth on the MLO view. 2.) Focal asymmetry in upper inner quadrant far posterior depth Left: Asymmetry retroareolar region posterior depth on CC view COMPARISON: Screening mammogram on March 27, 2025. Multiple prior studies from outside hospital were made available for review at this time, most recent left breast postbiopsy follow-up ultrasound on September 12, 2021, and most remote bilateral mammogram on June 26, 2017. TECHNIQUE: Digital breast tomosynthesis is performed in full-field ML 90 degrees and CC views along with computer-aided detection (CAD). Synthesized 2D images are generated from the tomosynthesis. Spot compression tomosynthesis of both breasts were obtained. FINDINGS: BREAST COMPOSITION: The breasts are heterogeneously dense, which may obscure small masses. RIGHT BREAST: 1) Asymmetry in the upper breast at approximately 8 cm from the nipple on the MLO view is pliable with spot compression, and most likely represented overlapping fibroglandular breast tissue. On today's images, the local parenchyma has similar appearance to multiple prior studies as far back as 2018. No dedicated imaging follow-up needed. 2) Focal asymmetry in the upper inner quadrant far posterior depth is redemonstrated on today's images, measuring approximately 1.2 cm at 11.5 cm from the nipple (MLO 46/75, CC 40/68). This was present in prior study in 2018 when measured 1.0 cm. Targeted ultrasound of the right breast was performed at the location of the mammographic finding. The survey shows a 0.9 x 0.4 x 0.6 cm hypoechoic solid mass with parallel orientation at 2 o'clock position at 10 cm from the nipple. No internal vascularity demonstrated with color Doppler evaluation. 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 No dedicated imaging follow-up needed. LEFT BREAST: Asymmetry in the retroareolar region posterior depth on CC view is pliable. On today's images, the local parenchyma is similar to multiple prior studies as far back as 2018. Therefore, the asymmetry most likely represented overlapping fibroglandular breast tissue. MM/MM tomosynthesis diagnostic BI IMPRESSION: RIGHT BREAST: Benign-appearing solid mass at 2 o'clock position at 10 cm from the nipple; mammographic correlate was present since at least 2018. 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 No dedicated imaging follow-up needed. Benign, no evidence of malignancy. Normal interval follow-up is recommended in 12 months. LEFT BREAST: Negative, no mammographic evidence of malignancy. Normal interval follow-up is recommended in 12 months. ASSESSMENT: BI-RADS: Category 2: Benign RECOMMENDATION: 1 year F/U Results were provided to the patient at time of visit by the technologist. This patient's information was entered into a reminder system with a target due date for their next mammogram. Electronically signed by: Gabi Adam MD 05/10/2025 05:10 PM [facility]
== END 2025-05-10 13:57 | disposition home or self-care (01) ==
LOC: HO.MAMMO 13:56
DX: N64.89 Other specified disorders of breast (principal); N63.32 Unspecified lump in axillary tail of the left breast
CPT/HCPCS: 76642; 77062; 77066

== ENCOUNTER → 2025-05-10 14:15 | Outpatient (BNV) | payer OTHER, SELFPAY | PROVIDERS: Visit Provider Radiology Body Imaging | DX: R92.8 Other abnormal and inconclusive findings on diagnostic imaging of breast (principal) | CPT/HCPCS: 76642; 77062; 77066 ==